=== PATIENT | male | born 1930 | race Caucasian/White ===

== ENCOUNTER 2016-08-28 17:17 | Inpatient (IN) | payer OTHER, BC ==
[~2016-08-28] VITALS: Ht 175.3 cm; Wt 90.7 kg
[~2016-08-28 17:17] MED LIST: ALLOPURINOL 10100 M1 PO; ASPIRIN EC81 M1 PO; ASPIRIN325 PO; ASPIRIN81 M2 PO; ATENOLOL 50MG T50 MG PO; B-12 DOTS500 MCG PO; CLARITIN10 MG PO; COUMADIN 5 MG TA5 M1 PO; COUMADIN7.5 MG PO; COZAAR 50 MG TA50 M2 PO; COZAAR100 MG PO; FORADIL 1212 MCG/KI1; FUROSEMIDE 40 M40 M1 PO; GLUCOTROL10 MG PO; HYDROCODON-ACE1 EAC4 PO; HYDROCODON-ACE1 EAC5 PO; IRON325 PO; JANTOVEN7.5 MG PO; JANUVIA 50 MG T50 M1 PO; K-DUR10 MEQ PO; LASIX 40 MG TAB40 M2 PO; LEVOTHYROXINE0.05 MG; LEVOTHYROXINE0.05 MG PO; MELOXICAM7.5 MG PO; NORCO 10-325 T1 EACH PO; ONGLYZA5 MG PO; PERCOCET PO; POTASSIUM20 PO; VALIUM2 MG PO; VITAMIN D1000 UNI1 PO; VITAMIN D31000 UNI2; ZOCOR 20 MG TAB20 M1 PO
[2016-08-28 17:18] VITALS: BP 120/75
[2016-08-28 18:00] LABS: HEMOGLOBIN 13.5 gm/dL (14.0-18.0); MCHC 33.8 g/dL (28.0-37.0); MCV 88.7 fL (80.0-100.0); PLATELET COUNT 156 thou/uL (150-400); RBC 4.51 mil/uL (4.50-6.00); RDW 14.1 % (10.5-14.5); WBC 7.3 thou/uL (4.0-11.0)
[2016-08-28 18:01] LABS: MANUAL DIFF YES
[2016-08-28 18:10] LABS: ANION GAP 5 mmol/L (7-16); BUN 28 mg/dL (7-18); CALCIUM 10.4 mg/dL (8.5-10.1); CHLORIDE 105 mmol/L (98-107); CO2 29 mmol/L (21-32); CREATININE 2.2 mg/dL (0.7-1.3); GLUCOSE 204 mg/dL (74-106); POTASSIUM 4.6 mmol/L (3.5-5.1); SODIUM 139 mmol/L (136-145)
[2016-08-28 18:15] LABS: ALBUMIN 3.6 g/dL (3.4-5.0); ALKALINE PHOSPHATASE 68 U/L (46-116); DIRECT BILIRUBIN < 0.1 mg/dL (<0.1-0.3); SGOT 19 U/L (15-37); SGPT 32 U/L (30-65); TOTAL BILIRUBIN 0.4 mg/dL (<0.1-1.0); TOTAL PROTEIN 7.2 g/dL (6.4-8.2)
[2016-08-28 18:16] LABS: APTT 37.8 Seconds (24.5-32.8); INR 2.3; PROTIME 24.1 Seconds (9.3-11.4)
[2016-08-28 18:24] LABS: ABSOLUTE NEUTROPHILS 4.5 thou/uL (1.4-8.2); TOTAL CELL COUNT 100
[2016-08-28] MEDS ORDERED: LIPITOR40 MG PO (18:44)
[2016-08-28] MEDS ORDERED: ATENOLOL 50MG T50 MG PO (18:45)
[2016-08-28] MEDS ORDERED: NORCO 10-325 T1 EACH PO (18:46)
[2016-08-28] MEDS ORDERED: VITAMIN D3400 UNIT PO (18:49)
[2016-08-28] MEDS ORDERED: NORTRIPTYLINE H10 M1 PO (18:50)
[2016-08-28] MEDS ORDERED: SENSIPAR 30 MG30 M1 PO (18:50)
[2016-08-28] MEDS ORDERED: BINOSTO70 MG PO (18:51)
[2016-08-28 19:50] VITALS: BP 145/84
[2016-08-28 20:00] VITALS: BP 144/95
[2016-08-28 20:01] VITALS: BP 144/95
[2016-08-29 04:16] VITALS: BP 143/81
[2016-08-29 05:54] LABS: HEMATOCRIT 36.6 % (42.0-52.0); HEMOGLOBIN 12.4 gm/dL (14.0-18.0); MCH 29.9 pg (26.0-34.0); MCHC 33.8 g/dL (28.0-37.0); MCV 88.4 fL (80.0-100.0); RBC 4.14 mil/uL (4.50-6.00); RDW 13.8 % (10.5-14.5); WBC 5.8 thou/uL (4.0-11.0)
[2016-08-29 06:07] LABS: INR 2.2; PROTIME 23.2 Seconds (9.3-11.4)
[2016-08-29 06:14] LABS: ALBUMIN 3.1 g/dL (3.4-5.0); CALCIUM 9.8 mg/dL (8.5-10.1); CREATININE 1.8 mg/dL (0.7-1.3); POTASSIUM 4.3 mmol/L (3.5-5.1); TOTAL BILIRUBIN 0.6 mg/dL (<0.1-1.0); TOTAL PROTEIN 6.4 g/dL (6.4-8.2)
[2016-08-29 07:36] VITALS: BP 151/90
[2016-08-29 15:47] VITALS: BP 140/81
[2016-08-29 19:20] VITALS: BP 124/64
[2016-08-30 04:00] VITALS: BP 118/62
[2016-08-30 06:55] VITALS: BP 145/87
[2016-08-30] MEDS ORDERED: KEFLEX500 MG PO (10:06)
[2016-08-30] MEDS ORDERED: TRIAMCINOLONE A15 G1 TOP (10:06)
[2016-08-30 11:28] VITALS: BP 145/87
== END 2016-08-30 13:15 | disposition home or self-care (01) | DRG 603 ==
LOC: ER 17:17 → EROBS 18:49 → 5S 18:49
PROVIDERS: Family Medicine; Nurse Practitioner
DX: L03.113 Cellulitis of right upper limb (principal); N17.9 Acute kidney failure, unspecified; I48.91 Unspecified atrial fibrillation; M19.90 Unspecified osteoarthritis, unspecified site; M10.9 Gout, unspecified; E11.9 Type 2 diabetes mellitus without complications; G47.30 Sleep apnea, unspecified; L30.9 Dermatitis, unspecified; Z96.653 Presence of artificial knee joint, bilateral; I73.9 Peripheral vascular disease, unspecified; E78.5 Hyperlipidemia, unspecified; Z87.891 Personal history of nicotine dependence; Z93.3 Colostomy status; Z95.1 Presence of aortocoronary bypass graft; Z79.01 Long term (current) use of anticoagulants; Z79.899 Other long term (current) drug therapy; Z87.81 Personal history of (healed) traumatic fracture; Z88.0 Allergy status to penicillin; Z91.09 Other allergy status, other than to drugs and biological substances
CPT/HCPCS: 10086

== ENCOUNTER 2016-12-02 22:11 | Emergency (ER) | payer OTHER, BC ==
[~2016-12-02] VITALS: Ht 175.3 cm; Wt 90.7 kg
[~2016-12-02 22:11] MED LIST changes: +BINOSTO70 MG PO; +KEFLEX500 MG PO; +LIPITOR40 MG PO; +NORTRIPTYLINE H10 M1 PO; +SENSIPAR 30 MG30 M1 PO; +TRIAMCINOLONE A15 G1 TOP; +VITAMIN D3400 UNIT PO
[2016-12-02] MEDS ORDERED: TRAMADOL 50 MG50 MG PO (23:06)
[2016-12-02] MEDS ORDERED: CLEOCIN HCL150 MG PO (23:06)
[2016-12-02 23:40] LABS: HEMATOCRIT 36.1 % (42.0-52.0); MCH 29.6 pg (26.0-34.0); MCHC 33.3 g/dL (28.0-37.0); PLATELET COUNT 156 thou/uL (150-400); RBC 4.05 mil/uL (4.50-6.00); RDW 14.7 % (10.5-14.5); WBC 9.1 thou/uL (4.0-11.0)
[2016-12-02 23:43] LABS: CALCIUM 9.8 mg/dL (8.5-10.1); POTASSIUM 4.6 mmol/L (3.5-5.1)
[2016-12-03 00:50] LABS: MANUAL DIFF YES
[2016-12-03 00:57] VITALS: BP 134/70
[2016-12-03 01:18] LABS: ABSOLUTE NEUTROPHILS 6.1 thou/uL (1.4-8.2); TOTAL CELL COUNT 100
== END 2016-12-03 01:01 | disposition home or self-care (01) ==
LOC: ER 22:11
PROVIDERS: Emergency Medicine
DX: T50.Z95A Adverse effect of other vaccines and biological substances, initial encounter (principal); L03.114 Cellulitis of left upper limb; N18.9 Chronic kidney disease, unspecified; E11.22 Type 2 diabetes mellitus with diabetic chronic kidney disease; I12.9 Hypertensive chronic kidney disease with stage 1 through stage 4 chronic kidney disease, or unspecified chronic kidney disease; E11.51 Type 2 diabetes mellitus with diabetic peripheral angiopathy without gangrene; E78.5 Hyperlipidemia, unspecified; I48.91 Unspecified atrial fibrillation; M19.90 Unspecified osteoarthritis, unspecified site; Z95.1 Presence of aortocoronary bypass graft; Z96.653 Presence of artificial knee joint, bilateral; Z98.890 Other specified postprocedural states; Z87.891 Personal history of nicotine dependence; Z88.0 Allergy status to penicillin; Z88.8 Allergy status to other drugs, medicaments and biological substances; Y92.89 Other specified places as the place of occurrence of the external cause

== ENCOUNTER → 2018-07-17 | Outpatient (CLI) | payer OTHER, BC ==
[~2018-07-17] MED LIST changes: +CLEOCIN HCL150 MG PO; +HALLS DEFENSE60 MG PO; +TRAMADOL 50 MG50 MG PO
== END ==
LOC: ULTRA 10:17
DX: N28.89 Other specified disorders of kidney and ureter (principal)

== ENCOUNTER 2018-11-09 00:16 | Emergency (ER) | payer OTHER, BC ==
[~2018-11-09] VITALS: Ht 175.3 cm; Wt 95.3 kg
[2018-11-09 01:35] LABS: URINE BILIRUBIN NEGATIVE (Negative); URINE BLOOD NEGATIVE (Negative); URINE CLARITY CLEAR; URINE COLOR YELLOW; URINE GLUCOSE-RANDOM* 1+ (Negative); URINE KETONES NEGATIVE (Negative); URINE LEUKOCYTES-REFLEX NEGATIVE (Negative); URINE NITRITE-REFLEX NEGATIVE (Negative); URINE PROTEIN (DIPSTICK) NEGATIVE (Negative); URINE UROBILINOGEN 0.2 E.U./dl (0.2-1.0)
[2018-11-09 01:37] LABS: HEMATOCRIT 37.2 % (42.0-52.0); MCH 29.1 pg (26.0-34.0); MCHC 32.4 g/dL (28.0-37.0); MCV 89.8 fL (80.0-100.0); PLATELET COUNT 163 thou/uL (150-400); RBC 4.14 mil/uL (4.50-6.00); RDW 14.5 % (10.5-14.5); WBC 8.5 thou/uL (4.0-11.0)
[2018-11-09 01:41] LABS: CALCIUM 9.9 mg/dL (8.5-10.1); CREATININE 1.7 mg/dL (0.7-1.3); POTASSIUM 4.4 mmol/L (3.5-5.1)
[2018-11-09 02:30] LABS: INR 2.4; PROTIME 25.4 Seconds (9.3-11.4)
[2018-11-09 02:42] LABS: ABSOLUTE NEUTROPHILS 4.9 thou/uL (1.4-8.2)
[2018-11-09 02:43] LABS: PLATELET ESTIMATE NORMAL
[2018-11-09] MEDS ORDERED: METHOCARBAMOL500 M2 PO (02:57)
[2018-11-09] MEDS ORDERED: SENNA-DOCUSATE1 EAC1 PO (03:04)
[2018-11-09 03:33] VITALS: BP 133/77
== END 2018-11-09 03:38 | disposition home or self-care (01) ==
LOC: ER 00:16
PROVIDERS: Emergency Medicine
DX: G89.29 Other chronic pain (principal); M54.5 Low back pain; I10 Essential (primary) hypertension; E11.9 Type 2 diabetes mellitus without complications; M19.90 Unspecified osteoarthritis, unspecified site; M10.9 Gout, unspecified; E78.5 Hyperlipidemia, unspecified; G47.30 Sleep apnea, unspecified; I48.91 Unspecified atrial fibrillation; Z95.1 Presence of aortocoronary bypass graft; Z98.890 Other specified postprocedural states; Z96.653 Presence of artificial knee joint, bilateral; Z88.0 Allergy status to penicillin; Z91.018 Allergy to other foods; Z87.891 Personal history of nicotine dependence

== ENCOUNTER → 2019-03-26 | Outpatient (CLI) | payer OTHER, BC ==
[~2019-03-26] MED LIST changes: +METHOCARBAMOL500 M2 PO; +SENNA-DOCUSATE1 EAC1 PO
== END ==
LOC: SJCVCIMAG 13:32
DX: I36.1 Nonrheumatic tricuspid (valve) insufficiency (principal); I25.10 Atherosclerotic heart disease of native coronary artery without angina pectoris; R94.31 Abnormal electrocardiogram [ECG] [EKG]; I13.0 Hypertensive heart and chronic kidney disease with heart failure and stage 1 through stage 4 chronic kidney disease, or unspecified chronic kidney disease; I50.32 Chronic diastolic (congestive) heart failure; N18.9 Chronic kidney disease, unspecified; I65.23 Occlusion and stenosis of bilateral carotid arteries; E78.5 Hyperlipidemia, unspecified; I48.91 Unspecified atrial fibrillation; E11.22 Type 2 diabetes mellitus with diabetic chronic kidney disease; E03.9 Hypothyroidism, unspecified; Z79.82 Long term (current) use of aspirin; Z79.01 Long term (current) use of anticoagulants; Z79.899 Other long term (current) drug therapy